=== PATIENT | female | born 1990 | race American Indian/Alaskan Native ===

== ENCOUNTER 2017-11-21 21:00 | Inpatient (IN) | payer MEDICARE ==
[2017-11-21] MEDS ORDERED: D5NS 0.2% 1,000 ML IV SCH (22:00)
[2017-11-21 22:21] LABS: Hemoglobin 6.9 gm/dl (10.1-14.3); Mean Corpuscular HGB Conc 37 % (30-34); Mean Corpuscular Hemoglobin 28 pg (28-32); Mean Corpuscular Volume 76 fl (79-97); Platelet Count 281 K/mm3 (140-440); Red Blood Count 2.45 M/mm3 (3.65-5.03)
[2017-11-21 22:22] LABS: Red Cell Distribution Width 23.5 % (13.2-15.2)
[2017-11-21 22:24] LABS: Hematocrit 18.6 % (30.3-42.9)
[2017-11-21] MEDS ORDERED: BENADRYL IV ONE (23:00)
[2017-11-21] MEDS ORDERED: ZOFRAN IV ONE (23:00)
[2017-11-21] MEDS ORDERED: NACL 0.9% 500 ML 500 ML IV ONE (23:00)
[2017-11-21] MEDS ORDERED: TORADOL IV ONE (23:00)
[2017-11-21] MEDS ORDERED: DILAUDID IV ONE (23:00)
--- NOTE | 2017-11-21 23:05 | Emergency Department Report ---
ED General Adult HPI - General Chief complaint: Sickle Cell Crisis Stated complaint: SICK CELL PAIN Time Seen by Provider: 11/21/17 22:48 Source: patient Mode of arrival: Ambulatory Limitations: No Limitations - History of Present Illness Initial comments: 27-year-old female with a past medical history sickle cell SS presents to the hospital complaining of sickle cell crisis that worsened today. Patient has been having generalized body aches for the past 5 days secondary to sickle cell crisis which she thinks was exacerbated by overdoing it in the cold weather and snow. Patient was seen and treated at [facility] 2 days ago. She reports her hemoglobin was 8.1 at a time. Symptoms worsened today despite medication. She denies chest pain, shortness of breath, or fever. Patient follows with a [place] [facility] - Related Data Home Medications Medication Instructions Recorded Confirmed Last Taken ALBUTEROL NEB's mg IH Q6H PRN 11/21/17 Unknown Advair 100-50 Diskus 2 puff IH DAILY 11/21/17 11/21/17 Unknown Fluticasone [Flonase] 2 spr INTRANASAL DAILY 11/21/17 11/21/17 Unknown Folic Acid 1 mg PO DAILY 11/21/17 11/21/17 Unknown Singulair 10 mg PO DAILY 11/21/17 11/21/17 Unknown Allergies Allergy/AdvReac Type Severity Reaction Status Date / Time Cephalosporins Allergy Hives Verified 11/21/17 21:37 ED Review of Systems ROS: Stated complaint: SICK CELL PAIN Other details as noted in HPI Comment: All other systems reviewed and negative Other: Constitutional: No fevers chills Eyes: No eye pain visual changes ENT: No ear pain or throat pain Neck: Denies pain Respiratory: Denies cough wheezing shortness of breath Cardiovascular: Denies chest pain, palpitations, syncope GI: Denies abdominal pain, nausea, vomiting, diarrhea : Denies dysuria Musculoskeletal: as per hpi Skin: Denies rash, lesions, erythema Neurologic: Denies headache, numbness, weakness Psychiatric: Denies suicidal ideation, hallucinations thy ED Past Medical Hx - Past Medical History Hx Sickle Cell Disease: Yes Hx Asthma: Yes - Surgical History Past Surgical History?: Yes Hx Cholecystectomy: Yes Additional Surgical History: Right Ovary, Tonsilectomy - Social History Smoking Status: Never Smoker Substance Use Type: None - Medications Home Medications: Home Medications Medication Instructions Recorded Confirmed Last Taken Type ALBUTEROL NEB's mg IH Q6H PRN 11/21/17 Unknown History Advair 100-50 Diskus 2 puff IH DAILY 11/21/17 11/21/17 Unknown History Fluticasone [Flonase] 2 spr INTRANASAL DAILY 11/21/17 11/21/17 Unknown History Folic Acid 1 mg PO DAILY 11/21/17 11/21/17 Unknown History Singulair 10 mg PO DAILY 11/21/17 11/21/17 Unknown History ED Physical Exam - General Limitations: No Limitations - Other Other exam information: General: No limitations, patient is alert in no acute distress Head exam: Atraumatic, normocephalic Eyes exam: Normal appearance, mild icteric sclerae, pale conjunctivae ENT: Moist mucous membrane Neck exam: Normal inspection, full range of motion Respiratory exam: Clear to auscultation bilateral, no wheezes, rales, crackles Cardiovascular: Normal rate and rhythm, normal heart sounds Abdomen: Soft, nondistended, and nontender, with normal bowel sounds, no rebound, or guarding Extremity: Full range of motion normal inspection no deformity Back: Normal Inspection, full range of motion, no tenderness Neurologic: Alert, oriented x3, cranial nerves intact, no motor or sensory deficit Psychiatric: normal affect, normal mood Skin: Warm, dry, intact ED Course Vital Signs 11/21/17 21:02 Temperature 98.1 F Respiratory 16 Rate Blood Pressure 104/55 - Reevaluation(s) Reevaluation #1: 11/21/17 23:03 Meds ordered for pain, blood ordered ED Medical Decision Making - Lab Data Result diagrams: 11/21/17 22:06 Lab Results 11/21/17 11/21/17 Range/Units 22:06 22:06 WBC 8.8 (4.5-11.0) K/mm3 RBC 2.45 L (3.65-5.03) M/mm3 Hgb 6.9 L (10.1-14.3) gm/dl Hct 18.6 L* (30.3-42.9) % MCV 76 L (79-97) fl MCH 28 (28-32) pg MCHC 37 H (30-34) % RDW 23.5 H (13.2-15.2) % Plt Count 281 (140-440) K/mm3 Percent Retic 9.36 H (0.78-2.58) % HCG, Qual Negative (Negative) - Medical Decision Making Acute sickle cell crisis Dilaudid, Zofran, Toradol, D5W half normal and Benadryl ordered Patient has significant anemia requiring blood transfusion, 2 units PRBC ordered Hospitalist informed Critical Care Time: No Critical care attestation.: If time is entered above; I have spent that time in minutes in the direct care of this critically ill patient, excluding procedure time. ED Disposition Clinical Impression: Sickle cell anemia with crisis, Anemia Disposition: DC-09 OP ADMIT IP TO THIS HOSP Is pt being admited?: Yes Condition: Stable Time of Disposition: 23:05 (Dr Shields/hosp)
[2017-11-21] MEDS ORDERED: BENADRYL PO PRN (23:44)
[2017-11-21] MEDS ORDERED: MILK OF MAGNESIA PO PRN (23:44)
[2017-11-21] MEDS ORDERED: ZOFRAN IV PRN (23:44)
[2017-11-21] MEDS ORDERED: DULCOLAX PR PRN (23:44)
[2017-11-21] MEDS ORDERED: BENADRYL IV PRN (23:44)
[2017-11-21] MEDS ORDERED: D5/0.45NS 1,000 ML IV SCH (23:45)
--- NOTE | 2017-11-21 23:51 | History and Physical Report ---
History of Present Illness Date of examination: 11/21/17 History of present illness: 27-year-old woman with a history of sickle cell comes to the emergency room with complaints of pain that started on . Pain is in the lower back which she describes as a dull pain, constant, intensity 9/10, radiating up to the arm, chest, legs, not relieved with her oxycodone at home. No nausea vomiting, fever or chills Review Of Systems: Constitutional: no weight loss Ears, eyes, nose, mouth and throat: no nasal congestion, no nasal discharge, no sinus pressure, blurry vision, diplopia Neck: No neck pain or rigidity. Cardiovascular: No chest pain, palpitations Respiratory: No shortness of breath, cough Gastrointestinal: No abdominal pain, hematochezia Genitourinary : no dysuria, frequency , hematuria Musculoskeletal: + muscle ache Integumentary: no rash, no pruritis Neurological: no parathesias, focal weakness Endocrine: no cold or heat intolerance, no polyuria or polydipsia Hematologic/Lymphatic: no easy bruising, no easy bleeding, no gland swelling Allergic/Immunologic: no urticaria, no angioedema. PAST MEDICAL HISTORY:sickle cell PAST SURGICAL HISTORY: Right oophorectomy, cholecystectomy, tonsillectomy FAMILY HISTORY:sickle cell SOCIAL HISTORY: Denies focal, tobacco, drugs Medications and Allergies Allergies Allergy/AdvReac Type Severity Reaction Status Date / Time Cephalosporins Allergy Hives Verified 11/21/17 21:37 Home Medications Medication Instructions Recorded Confirmed Last Taken Type ALBUTEROL NEB's mg IH Q6H PRN 11/21/17 Unknown History Advair 100-50 Diskus 2 puff IH DAILY 11/21/17 11/21/17 Unknown History Fluticasone [Flonase] 2 spr INTRANASAL DAILY 11/21/17 11/21/17 Unknown History Folic Acid 1 mg PO DAILY 11/21/17 11/21/17 Unknown History Singulair 10 mg PO DAILY 11/21/17 11/21/17 Unknown History Active Meds: Active Medications Dextrose/Sodium Chloride (D5ns 0.2%) 1,000 mls @ 250 mls/hr IV DIRECT SHARON Exam - Physical Exam Narrative exam: Gen. appearance: Patient lying in bed in no acute distress HEENT: Normocephalic/atraumatic, pupils equal round reactive to light, extra occular movement intact, no scleral icterus, no JVD or thyromegaly or nodule, neck is supple, mucous membrane moist, no erythema or exudate Heart: S1-S2, regular rate and rhythm Lungs: Clear to auscultation bilateral breathing comfortable Abdomen: Positive bowel sounds, nontender, nondistended, no organomegaly Extremities: No edema, cyanosis, clubbing Neuro:: Oriented 3 , cranial nerves II-12 intact, speech, motor intact Skin: No rash, nodules, warm dry - Constitutional Vitals: Temp Pulse Resp BP Pulse Ox 98.1 F 76 120 H 104/55 100 11/21/17 21:02 11/21/17 23:07 11/21/17 23:41 11/21/17 21:02 11/21/17 23:41 Results - Labs CBC & Chem 7: 11/21/17 22:06 Labs: Abnormal lab results 11/21/17 Range/Units 22:06 RBC 2.45 L (3.65-5.03) M/mm3 Hgb 6.9 L (10.1-14.3) gm/dl Hct 18.6 L* (30.3-42.9) % MCV 76 L (79-97) fl MCHC 37 H (30-34) % RDW 23.5 H (13.2-15.2) % Percent Retic 9.36 H (0.78-2.58) % Assessment and Plan Assessment Sickle cell crisis Anemia secondary to sickle cell crisis Plan Admit medicine Start IV fluids, IV narcotics, transfuse blood DVT prophylaxis
[2017-11-22 00:40] LABS: Anisocytosis 3+; Band Neutrophils # (Manual) 0.1 K/mm3; Sickle Cells 2+; Target Cells Few; Total Cells Counted 100
[2017-11-22 00:41] LABS: Large Platelets Few
[2017-11-22] MEDS ORDERED: NACL 0.9% 500 ML 500 ML ONE (02:01)
[2017-11-22] MEDS: MORPHINE IV PRN ×2 (03:07→19:44)
[2017-11-22 03:44] LABS: BUN/Creatinine Ratio 27; Blood Urea Nitrogen 8 mg/dL (7-17); Calcium 8.3 mg/dL (8.4-10.2); Hemolysis Index 28
[2017-11-22] MEDS: OxyCONTIN PO SCH ×3 (06:03→22:20)
[2017-11-22] MEDS: FOLVITE PO SCH (09:56)
[2017-11-22] MEDS: THERAGRAN Tab PO SCH (09:56)
[2017-11-22] MEDS: MORPHINE PO PRN (11:05)
[2017-11-22] MEDS ORDERED: PNEUMOVAX 23 IM ONE (12:00)
[2017-11-22] MEDS ORDERED: Fluarix Quad 2017-2018(36 MOS+ IM ONE (12:00)
[2017-11-22 16:13] LABS: Hematocrit 27.4 % (30.3-42.9)
--- NOTE | 2017-11-22 16:26 | Progress Note ---
Assessment and Plan Assessment and plan: 27-year-old woman with a history of sickle cell normally followed by [facility] was admitted to us for complaints of chest pain concerning for sickle cell crisis not alleviated oxycodone at home. She denies any chest pain, nausea , vomiting, no fever. Sickle cell crisis * Continue pain control * Switch fluids to LR Anemia secondary to sickle cell crisis * Status post 2 units packed red blood cell with good improvement * Monitor normalization of hemoglobin will repeat H&H in a.m. * Continue outpatient follow-up with a grade to clinic Chronic pain syndrome * Continue pain control and gradually tapered down to home dose. DVT and GI prophylaxis Plan of care discussed with the patient's family member in detail. History Interval history: Patient seen and examined today in no acute distress although still complains of mild generalized pain. This more focused on the thigh. Rates it a 5/10 in intensity. She reports that her normal hemoglobin level is 8. Hospitalist Physical - Physical exam Narrative exam: VITAL SIGNS: Reviewed. GENERAL: The patient appeared well nourished and normally developed. Vital signs as documented. HEAD: No signs of head trauma. EYES: Pupils are equal. Extraocular motions intact. EARS: Hearing grossly intact. MOUTH: Oropharynx is normal. NECK: No adenopathy, no JVD. CHEST: Chest with clear breath sounds bilaterally. No wheezes, rales, or rhonchi. CARDIAC: Regular rate and rhythm. S1 and S2, without murmurs, gallops, or rubs. VASCULAR: No Edema. Peripheral pulses normal and equal in all extremities. ABDOMEN: Soft, without detectable tenderness. No sign of distention. No rebound or guarding, and no masses palpated. Bowel Sounds normal. MUSCULOSKELETAL: Good range of motion of all major joints. Extremities without clubbing, cyanosis or edema. NEUROLOGIC EXAM: Alert and oriented x 3. No focal sensory or strength deficits. Speech normal. Follows commands. PSYCHIATRIC: Mood normal. SKIN: Multiple skin tattoos - Constitutional Vitals: Temp Pulse Resp BP Pulse Ox 98.5 F 61 16 97/57 96 11/22/17 16:20 11/22/17 16:20 11/22/17 16:20 11/22/17 16:20 11/22/17 16:20 Results - Labs CBC & Chem 7: 11/22/17 16:00 11/22/17 00:17 Labs: Laboratory Last Values WBC 8.8 K/mm3 (4.5-11.0) 11/21/17 22:06 RBC 2.45 M/mm3 (3.65-5.03) L 11/21/17 22:06 Hgb 10.0 gm/dl (10.1-14.3) L D 11/22/17 16:00 Hct 27.4 % (30.3-42.9) L D 11/22/17 16:00 MCV 76 fl (79-97) L 11/21/17 22:06 MCH 28 pg (28-32) 11/21/17 22:06 MCHC 37 % (30-34) H 11/21/17 22:06 RDW 23.5 % (13.2-15.2) H 11/21/17 22:06 Plt Count 281 K/mm3 (140-440) 11/21/17 22:06 Add Manual Diff Complete 11/21/17 22:06 Total Counted 100 11/21/17 22:06 Seg Neuts % (Manual) 51.0 % (40.0-70.0) 11/21/17 22:06 Band Neutrophils % 1.0 % 11/21/17 22:06 Lymphocytes % (Manual) 28.0 % (13.4-35.0) 11/21/17 22:06 Reactive Lymphs % (Man) 0 % 11/21/17 22:06 Monocytes % (Manual) 13.0 % (0.0-7.3) H 11/21/17 22:06 Eosinophils % (Manual) 5.0 % (0.0-4.3) H 11/21/17 22:06 Basophils % (Manual) 2.0 % (0.0-1.8) H 11/21/17 22:06 Metamyelocytes % 0 % 11/21/17 22:06 Myelocytes % 0 % 11/21/17 22:06 Promyelocytes % 0 % 11/21/17 22:06 Blast Cells % 0 % 11/21/17 22:06 Nucleated RBC % 13.0 % (0.0-0.9) H 11/21/17 22:06 Seg Neutrophils # Man 4.5 K/mm3 (1.8-7.7) 11/21/17 22:06 Band Neutrophils # 0.1 K/mm3 11/21/17 22:06 Lymphocytes # (Manual) 2.5 K/mm3 (1.2-5.4) 11/21/17 22:06 Abs React Lymphs (Man) 0.0 K/mm3 11/21/17 22:06 Monocytes # (Manual) 1.1 K/mm3 (0.0-0.8) H 11/21/17 22:06 Eosinophils # (Manual) 0.4 K/mm3 (0.0-0.4) 11/21/17 22:06 Basophils # (Manual) 0.2 K/mm3 (0.0-0.1) H 11/21/17 22:06 Metamyelocytes # 0.0 K/mm3 11/21/17 22:06 Myelocytes # 0.0 K/mm3 11/21/17 22:06 Promyelocytes # 0.0 K/mm3 11/21/17 22:06 Blast Cells # 0.0 K/mm3 11/21/17 22:06 WBC Morphology Not Reportable 11/21/17 22:06 Hypersegmented Neuts Not Reportable 11/21/17 22:06 Hyposegmented Neuts Not Reportable 11/21/17 22:06 Hypogranular Neuts Not Reportable 11/21/17 22:06 Smudge Cells Not Reportable 11/21/17 22:06 Toxic Granulation Not Reportable 11/21/17 22:06 Toxic Vacuolation Not Reportable 11/21/17 22:06 Dohle Bodies Not Reportable 11/21/17 22:06 Pelger-Huet Anomaly Not Reportable 11/21/17 22:06 Helder Rods Not Reportable 11/21/17 22:06 Platelet Estimate Appears normal 11/21/17 22:06 Clumped Platelets Not Reportable 11/21/17 22:06 Plt Clumps, EDTA Not Reportable 11/21/17 22:06 Large Platelets Few 11/21/17 22:06 Giant Platelets Not Reportable 11/21/17 22:06 Platelet Satelliting Not Reportable 11/21/17 22:06 Plt Morphology Comment Not Reportable 11/21/17 22:06 RBC Morphology Not Reportable 11/21/17 22:06 Dimorphic RBCs Not Reportable 11/21/17 22:06 Polychromasia 2+ 11/21/17 22:06 Hypochromasia Not Reportable 11/21/17 22:06 Poikilocytosis Not Reportable 11/21/17 22:06 Anisocytosis 3+ 11/21/17 22:06 Microcytosis Not Reportable 11/21/17 22:06 Macrocytosis Not Reportable 11/21/17 22:06 Spherocytes Not Reportable 11/21/17 22:06 Pappenheimer Bodies Not Reportable 11/21/17 22:06 Sickle Cells 2+ 11/21/17 22:06 Target Cells Few 11/21/17 22:06 Tear Drop Cells Not Reportable 11/21/17 22:06 Ovalocytes Not Reportable 11/21/17 22:06 Helmet Cells Not Reportable 11/21/17 22:06 [place] Bodies Not Reportable 11/21/17 22:06 [place] Rings Not Reportable 11/21/17 22:06 Maryanne Cells Not Reportable 11/21/17 22:06 Bite Cells Not Reportable 11/21/17 22:06 Crenated Cell Not Reportable 11/21/17 22:06 Elliptocytes 1+ 11/21/17 22:06 Acanthocytes (Spur) Not Reportable 11/21/17 22:06 Rouleaux Not Reportable 11/21/17 22:06 Hemoglobin C Crystals Not Reportable 11/21/17 22:06 Schistocytes Not Reportable 11/21/17 22:06 Malaria parasites Not Reportable 11/21/17 22:06 Percent Retic 9.36 % (0.78-2.58) H 11/21/17 22:06 Corky Bodies Not Reportable 11/21/17 22:06 Hem Pathologist Commnt No 11/21/17 22:06 Sodium 135 mmol/L (137-145) L 11/22/17 00:17 Potassium 4.9 mmol/L (3.6-5.0) 11/22/17 00:17 Chloride 99.6 mmol/L (98-107) 11/22/17 00:17 Carbon Dioxide 23 mmol/L (22-30) 11/22/17 00:17 Anion Gap 17 mmol/L 11/22/17 00:17 BUN 8 mg/dL (7-17) 11/22/17 00:17 Creatinine 0.3 mg/dL (0.7-1.2) L 11/22/17 00:17 Estimated GFR > 60 ml/min 11/22/17 00:17 BUN/Creatinine Ratio 27 % 11/22/17 00:17 Glucose 99 mg/dL (65-100) 11/22/17 00:17 Calcium 8.3 mg/dL (8.4-10.2) L 11/22/17 00:17 HCG, Qual Negative (Negative) 11/21/17 22:06 Blood Type B POSITIVE 11/21/17 23:16 Antibody Screen Negative 11/21/17 23:16 Crossmatch See Detail 11/21/17 23:16
[2017-11-22] MEDS ORDERED: LACTATED RINGERS 1,000 ML IV SCH (17:00)
[2017-11-22] MEDS ORDERED: SENOKOT PO SCH (22:00)
[2017-11-23] MEDS: OxyCONTIN PO SCH ×2 (05:48→13:38)
[2017-11-23 06:46] LABS: Hematocrit 26.7 % (30.3-42.9); Hemoglobin 9.6 gm/dl (10.1-14.3)
[2017-11-23] MEDS: FOLVITE PO SCH (09:28)
[2017-11-23] MEDS: THERAGRAN Tab PO SCH (09:28)
[2017-11-23] MEDS: MORPHINE PO PRN (10:06)
--- NOTE | 2017-11-23 10:28 | Discharge Summary ---
Providers - Providers Date of Admission: 11/21/17 23:44 Attending physician: BRIAN ORTEGA MD Primary care physician: FRAN VELASQUEZ Hospitalization Condition: Stable Disposition: DC-01 TO HOME OR SELFCARE Time spent for discharge: 35 mins Core Measure Documentation - Palliative Care Palliative Care/ Comfort Measures: Not Applicable Exam - Constitutional Vitals: Temp Pulse Resp BP Pulse Ox 98.5 F 57 L 16 99/59 94 11/23/17 07:49 11/23/17 07:49 11/23/17 07:49 11/23/17 07:49 11/23/17 07:49 Plan Activity: advance as tolerated, fall precautions Diet: regular Additional Instructions: Follow at the [facility] Follow up with: FRAN VELASQUEZ MD [Primary Care Provider] - 7 Days Prescriptions: oxyCODONE /ACETAMINOPHEN [Percocet 5/325] 1 tab PO Q6HR PRN #20 tablet PRN Reason: Pain
[2017-11-23 15:51] VITALS: BP 102/51
== END 2017-11-23 17:20 | disposition home or self-care (01) | DRG 812 ==
LOC: ED 21:00 → 3A 23:44
PROVIDERS: ADMIT Internal Medicine; ATTEND Internal Medicine
PROC: 3E0234Z Introduction of Serum, Toxoid and Vaccine into Muscle, Percutaneous Approach (ICD-10-PCS; principal; 2017-11-22)
PROC: 30233N1 Transfusion of Nonautologous Red Blood Cells into Peripheral Vein, Percutaneous Approach (ICD-10-PCS; 2017-11-22)
DX: D57.00 Hb-SS disease with crisis, unspecified (principal); D64.9 Anemia, unspecified; G89.4 Chronic pain syndrome; Z88.8 Allergy status to other drugs, medicaments and biological substances; Z23 Encounter for immunization; Z90.49 Acquired absence of other specified parts of digestive tract; J45.909 Unspecified asthma, uncomplicated
CPT/HCPCS: 36415; 80048; 84703; 85007; 85014; 85018; 85025; 85045; 86850; 86900; 86901; 86920; 90686; 90732; 96374; 96375; J1170; J1200; J1885; J2270; J2405; J7040; J7120; P9016